=== PATIENT | female | born 1965 | race Hispanic/Latino ===

== ENCOUNTER 2017-03-13 14:38 | Emergency (ER) | payer MEDICAID ==
[2017-03-13 14:38] VITALS: BMI 20.2
[2017-03-13 14:44] VITALS: BP 122/73; PULSE 76; RESP 16; TEMP 98; O2SAT 100
[2017-03-13] MEDS ORDERED: Tmp-Smz 800 mg-160 mg DS Tab PO STA (15:28)
[2017-03-13] MEDS ORDERED: Tmp-Smz 800 mg-160 mg DS Tab ONE (15:42)
--- NOTE | 2017-03-13 15:42 | ED PDOC ---
HPI: Female Pain Chief Complaint (Provider): "right sided back pain and burning with urination" History Per: Patient Onset/Duration Of Symptoms: Days (2) Current Symptoms Are (Timing): Still Present Severity: Mild Quality Of Discomfort: Burning Associated Symptoms: Back Pain, Urinary Symptoms. denies: Fever, Chills, Nausea , Vomiting, Constipation Additional Complaint(s): Pt is a 51 yo F with pmh rotator cuff injury and pre-cancerous colon polyps presented to ED after being sent by pain management physician Dr. Pierce after she mentioned right flank pain and burning with urination during her appt. Pt had appt with PMD Dr. Cerna for next week, but was told today not to wait so long. Pt describes the pain upon urination as burning, and admits to increased frequency and urgency. She describes sensation in the R flank as burning as well. Never had similar episode in the past. Denies vomiting, nausea, fevers, blood in stool or urine, chest pain, shortness of breath, extremity swelling. PMD: Dr. Cerna Abnormal Vaginal Bleeding: No Last Menstral Period: 03/01/17 : 2 Para: 1 () Miscarriage: 1 <Lupe Brown - Last Filed: 03/13/17 16:51> <Ainsley Braga - Last Filed: 03/13/17 17:06> Time Seen by Provider: 03/13/17 14:55 Chief Complaint (Nursing): Abdominal Pain Supervising Attending Note - Supervising Attending Note The Documented history was done by the: Physician Immigration Specialist The documented physical exam was done by the: Physician Immigration Specialist The documented procedures were done by the: Physician Immigration Specialist - Attestation: I have personally seen and examined this patient.: Yes I have fully participated in the care of the patient.: Yes I have reviewed all pertinent clinical information, including history, physical exam and plan: Yes <Ainsley Braga - Last Filed: 03/13/17 17:06> Past Medical History Reviewed: Historical Data, Nursing Documentation, Vital Signs Vital Signs: Last Vital Signs Temp 98.0 F 03/13/17 14:40 Pulse 76 03/13/17 14:40 Resp 16 03/13/17 14:40 BP 122/73 03/13/17 14:40 Pulse Ox 100 03/13/17 14:40 - Medical History PMH: Anxiety, Arthritis, Colonic Polyps Denies: Chronic Kidney Disease - Surgical History Surgical History: - Family History Family History: States: Diabetes, Hypertension - Social History Current smoker - smoking cessation education provided: No (never smoker) Alcohol: None Drugs: Denies <Lupe Brown - Last Filed: 03/13/17 16:51> Vital Signs: Last Vital Signs Temp 98.0 F 03/13/17 14:40 Pulse 76 03/13/17 14:40 Resp 16 03/13/17 14:40 BP 122/73 03/13/17 14:40 Pulse Ox 100 03/13/17 16:51 <BragaAinsley ledezma Juan - Last Filed: 03/13/17 17:06> - Home Medications Home Medications: Ambulatory Orders Medication Instructions Recorded Cholecalciferol [Vitamin D 1000 IU] 1,000 iu PO QOTHERDAY 09/13/14 Multimineral/Multivitamin 1 tab PO DAILY 09/13/14 [Therapeutic-M Tab] oxyCODONE/Acetaminophen [Percocet 1 tab PO Q6 PRN 04/16/16 5/325 mg Tab] clonazePAM [clonAZEPAM] 0.5 mg PO PRN PRN 09/10/16 Sulfamethoxazole/Trimethoprim 1 tab PO BID #6 tab 03/13/17 [Bactrim DS 800 mg-160 mg] - Allergies Allergies/Adverse Reactions: Allergies Allergy/AdvReac Type Severity Reaction Status Date / Time Latex, Natural Rubber Allergy RASH Verified 04/16/16 09:36 Review of Systems ROS Statement: Except As Marked, All Systems Reviewed And Found Negative Genitourinary Female: Positive for: Dysuria, Frequency Musculoskeletal: Positive for: Shoulder Pain (chronic), Back Pain (R flank) <Lupe Brown - Last Filed: 03/13/17 16:51> Physical Exam - Physical Exam Appears: Positive for: Non-toxic, No Acute Distress Head Exam: Positive for: ATRAUMATIC, NORMAL INSPECTION, NORMOCEPHALIC Skin: Positive for: Normal Color, Warm Eye Exam: Positive for: Normal appearance, EOMI, PERRL ENT: Positive for: Normal ENT Inspection. Negative for: Pharyngeal Erythema Neck: Positive for: Normal, Painless ROM Cardiovascular/Chest: Positive for: Regular Rate, Rhythm Respiratory: Positive for: Normal Breath Sounds. Negative for: Wheezing, Respiratory Distress Gastrointestinal/Abdominal: Positive for: Normal Exam, Bowel Sounds, Soft. Negative for: Tenderness, Mass, Distended, Guarding Back: Positive for: Normal Inspection, R CVA Tenderness. Negative for: L CVA Tenderness Extremity: Positive for: Normal ROM. Negative for: Pedal Edema, Calf Tenderness , Deformity, Swelling Neurologic/Psych: Positive for: Alert, Oriented. Negative for: Motor/Sensory Deficits <KevinLupe - Last Filed: 03/13/17 16:51> - Laboratory Results Urine POC: Negative Urine dip results: Negative for: Leukocyte Esterase, Nitrate - ECG O2 Sat by Pulse Oximetry: 100 - Progress ED Course And Treament: Pt seen and evaluated, does not appear to be in acute distress. -vital signs stable, afebrile -urine preg - negative -urine dip- negative leuk esterase, neg nitrates -Bactrim 1 tab -UA unremarkable Pt reassessed after UA came back, no changes. Pt is currently symptomatic - 3 day course of Bactrim prescribed, and pt given ER precautions to return to ED if symptoms worsen, and to keep f/u appt with PMD next week. <FerLupe choudhury - Last Filed: 03/13/17 16:51> Disposition - Patient ED Disposition Is Patient to be Admitted: No - Disposition Disposition: Routine/Home Disposition Time: 16:41 <FerbrauliobillyLupe - Last Filed: 03/13/17 16:51> <Ainsley Braga - Last Filed: 03/13/17 17:06> - Clinical Impression Clinical Impression: Dysuria - Disposition Condition: STABLE Additional Instructions: Please take medication as prescribed, return to ED if symptoms worsen. Please keep your already scheduled follow up appointment with primary medical doctor. Prescriptions: Sulfamethoxazole/Trimethoprim [Bactrim DS 800 mg-160 mg] 1 tab PO BID #6 tab Instructions: Dysuria (ED) Forms: [employer] (Indonesian)
[2017-03-13 16:09] LABS: RBC URINE < 1 /hpf (0-3); URINE BACTERIA RARE (<OCC); URINE BILIRUBIN NEGATIVE (NEGATIVE); URINE BLOOD NEGATIVE (NEGATIVE); URINE COLOR STRAW (YELLOW); URINE GLUCOSE (UA) NEG (Normal); URINE KETONE NEGATIVE (NEGATIVE); URINE LEUKOCYTE ESTERASE NEG Leu/uL (Negative); URINE PROTEIN NEGATIVE (NEGATIVE); URINE UROBILINOGEN 0.2-1.0 mg/dL (0.2-1.0); WBC URINE 1 /hpf (0-5)
== END 2017-03-13 16:58 | disposition home or self-care (01) ==
LOC: H.ER 14:38
DX: R30.0 Dysuria (principal); F41.9 Anxiety disorder, unspecified

== ENCOUNTER 2017-06-29 15:51 | Emergency (ER) | payer MEDICAID ==
--- NOTE | 2017-06-29 16:05 | ED PDOC ---
HPI: Psych/Substance Abuse Time Seen by Provider: 06/29/17 15:56 History Per: Patient (Referred by PMD , has been feeling depressed due to loss of both parents over past 6 months. Expressing anger by cutting both arms.) Current Symptoms Are (Timing): Still Present Severity: Moderate Associated Symptoms: Depression Past Medical History - Medical History PMH: Anxiety, Arthritis, Colonic Polyps Denies: Chronic Kidney Disease - Surgical History Surgical History: - Family History Family History: States: Unknown Family Hx, Diabetes, Hypertension - Home Medications Home Medications: Ambulatory Orders Medication Instructions Recorded Cholecalciferol [Vitamin D 1000 IU] 1,000 iu PO QOTHERDAY 09/13/14 Multimineral/Multivitamin 1 tab PO DAILY 09/13/14 [Therapeutic-M Tab] oxyCODONE/Acetaminophen [Percocet 1 tab PO Q6 PRN 04/16/16 5/325 mg Tab] clonazePAM [clonAZEPAM] 0.5 mg PO PRN PRN 09/10/16 Sulfamethoxazole/Trimethoprim 1 tab PO BID #6 tab 03/13/17 [Bactrim DS 800 mg-160 mg] - Allergies Allergies/Adverse Reactions: Allergies Allergy/AdvReac Type Severity Reaction Status Date / Time Latex, Natural Rubber Allergy RASH Verified 04/16/16 09:36 Review of Systems Psych: Positive for: Depression Physical Exam - Physical Exam Appears: Positive for: Non-toxic, No Acute Distress Skin: Positive for: Normal Color, Warm, DRY Cardiovascular/Chest: Positive for: Regular Rate, Rhythm Respiratory: Positive for: CNT, Normal Breath Sounds Extremity: Positive for: Other (Sup lacerations forearms bilat) Neurologic/Psych: Positive for: Alert, Oriented. Negative for: Motor/Sensory Deficits Disposition - Clinical Impression Clinical Impression: Depression - Patient ED Disposition Is Patient to be Admitted: No Counseled Patient/Family Regarding: Diagnosis, Need For Followup - Disposition Referrals: Community Mental Health [Outside] Disposition: Routine/Home Disposition Time: 16:45 Condition: FAIR Instructions: Depression (ED)
[2017-06-29 16:11] VITALS: BP 142/89; PULSE 88; RESP 18; TEMP 98; O2SAT 99
== END 2017-06-29 18:20 | disposition home or self-care (01) ==
LOC: H.ER 15:51
DX: F32.9 Major depressive disorder, single episode, unspecified (principal); F41.9 Anxiety disorder, unspecified